=== PATIENT | female | born 1970 | race Caucasian/White ===

== ENCOUNTER → 2019-01-21 | Outpatient (CLI) | payer MEDICAID ==
--- NOTE | 2019-01-21 17:46 | US ---
EXAMINATION TYPE: US venous doppler duplex LE RT DATE OF EXAM: 01/21/2019 3:45 PM COMPARISON: NONE CLINICAL HISTORY: M79.661 PAIN RT LOWER LIMB. right calf pain after strenuous activity of room remode ling SIDE PERFORMED: Right TECHNIQUE: The lower extremity deep venous system is examined utilizing real time linear array sonog shemar with graded compression, doppler sonography and color-flow sonography. VESSELS IMAGED: Common Femoral Vein Deep Femoral Vein Greater Saphenous Vein * Femoral Vein Popliteal Vein Small Saphenous Vein * Proximal Calf Veins (* superficial vessels) Right Leg: Negative for DVT IMPRESSION: 1. Right lower extremity ultrasound negative for deep venous thrombosis.
== END ==
LOC: RADUSWWP 15:15
PROVIDERS: ATTEND Family Medicine
DX: M79.661 Pain in right lower leg (principal)

== ENCOUNTER → 2019-10-17 | Outpatient (CLI) | payer MEDICAID | END | disposition home or self-care (01) | LOC: LABWHC1 12:08 | PROVIDERS: ATTEND Family Medicine | DX: E55.9 Vitamin D deficiency, unspecified (principal) | CPT/HCPCS: 36415; 82306 ==

== ENCOUNTER 2020-05-07 07:49 | Observation (INO) | payer MEDICAID ==
[2020-05-07] MEDS ORDERED: SODIUM CHLORIDE 0.9% 500 ML 500 ML IV STA (08:12)
[2020-05-07] MEDS ORDERED: MORPHINE SULFATE 4 MG/ML SYRINGE IV STA (08:12)
--- NOTE | 2020-05-07 08:16 | ED ---
General Adult HPI - General Chief complaint: Abdominal Pain Stated complaint: Abd Pain Time Seen by Provider: 05/07/20 07:55 Source: patient, RN notes reviewed, old records reviewed Mode of arrival: ambulatory Limitations: no limitations - History of Present Illness Initial comments: 49-year-old female presenting for evaluation of abdominal pain. Pain began in the mid abdomen, has trouble to the right side after the past 12 hours or so. There is no associated fever. The patient has had some chills. No vomiting. She states she did move her bowels today but did not have a normal bowel movement. She has a previous surgical history of cholecystectomy in 2007. Pain is 7 out of 10 and radiating to the right lower quadrant. - Related Data Home Medications Medication Instructions Recorded Confirmed Ergocalciferol (Vitamin D2) 50 mcg PO DAILY 05/07/20 05/07/20 [Vitamin D2 (2000 Iu)] Sertraline [Zoloft] 50 mg PO HS 05/07/20 05/07/20 Allergies Allergy/AdvReac Type Severity Reaction Status Date / Time No Known Allergies Allergy Unverified 05/07/20 08:31 Review of Systems ROS Statement: Those systems with pertinent positive or pertinent negative responses have been documented in the HPI. ROS Other: All systems not noted in ROS Statement are negative. Past Medical History Past Medical History: GERD/Reflux History of Any Multi-Drug Resistant Organisms: None Reported Past Surgical History: Section, Cholecystectomy, Tubal Ligation Past Psychological History: No Psychological Hx Reported Smoking Status: Former smoker Past Alcohol Use History: None Reported Past Drug Use History: None Reported General Exam Limitations: no limitations General appearance: alert, in no apparent distress Head exam: Present: atraumatic, normocephalic Eye exam: Present: normal appearance, PERRL ENT exam: Present: normal exam Neck exam: Present: normal inspection. Absent: tenderness, meningismus Respiratory exam: Present: normal lung sounds bilaterally. Absent: respiratory distress, wheezes Cardiovascular Exam: Present: regular rate, normal rhythm GI/Abdominal exam: Present: soft, tenderness (Right lower quadrant tenderness to palpation.). Absent: distended, guarding, rebound Extremities exam: Present: normal inspection, normal capillary refill. Absent: pedal edema, calf tenderness Neurological exam: Present: alert, oriented X3, CN II-XII intact. Absent: motor sensory deficit Psychiatric exam: Present: normal affect, normal mood Skin exam: Present: warm, dry, intact. Absent: cyanosis, diaphoretic Course Vital Signs 05/07/20 07:51 Temperature 99.9 F H Pulse Rate 88 Respiratory 16 Rate Blood Pressure 157/91 O2 Sat by Pulse 99 Oximetry Medical Decision Making - Medical Decision Making 49-year-old female with periumbilical pain and right lower quadrant pain. She is tender on exam. She has a low-grade fever. Workup was initiated, she has mild leukocytosis, CT performed showing a acute appendicitis with no abscess or intraperitoneal free air. Case discussed with Dr. Tuttle who will admit for appendectomy likely later today. NPO, antibiotics initiated in the emergency department. - Lab Data Result diagrams: 05/07/20 08:18 05/07/20 08:18 Lab Results 05/07/20 05/07/20 05/07/20 Range/Units 08:15 08:18 08:18 WBC 13.6 H (3.8-10.6) k/uL RBC 4.68 (3.80-5.40) m/uL Hgb 14.2 (11.4-16.0) gm/dL Hct 40.8 (34.0-46.0) % MCV 87.2 (80.0-100.0) fL MCH 30.3 (25.0-35.0) pg MCHC 34.8 (31.0-37.0) g/dL RDW 12.1 (11.5-15.5) % Plt Count 252 (150-450) k/uL MPV 7.3 Neutrophils % 85 % Lymphocytes % 9 % Monocytes % 4 % Eosinophils % 1 % Basophils % 0 % Neutrophils # 11.5 H (1.3-7.7) k/uL Lymphocytes # 1.2 (1.0-4.8) k/uL Monocytes # 0.6 (0-1.0) k/uL Eosinophils # 0.1 (0-0.7) k/uL Basophils # 0.0 (0-0.2) k/uL PT 9.9 (9.0-12.0) sec INR 0.9 (<1.2) APTT 24.9 (22.0-30.0) sec Sodium (137-145) mmol/L Potassium (3.5-5.1) mmol/L Chloride (98-107) mmol/L Carbon Dioxide (22-30) mmol/L Anion Gap mmol/L BUN (7-17) mg/dL Creatinine (0.52-1.04) mg/dL Est GFR (CKD-EPI)AfAm (>60 ml/min/1.73 sqM) Est GFR (CKD-EPI)NonAf (>60 ml/min/1.73 sqM) Glucose (74-99) mg/dL Plasma Lactic Acid [place] 1.1 (0.7-2.0) mmol/L Calcium (8.4-10.2) mg/dL Total Bilirubin (0.2-1.3) mg/dL AST (14-36) U/L ALT (4-34) U/L Alkaline Phosphatase (38-126) U/L Total Protein (6.3-8.2) g/dL Albumin (3.5-5.0) g/dL Amylase (30-110) U/L Lipase (23-300) U/L Urine Color Urine Appearance (Clear) Urine pH (5.0-8.0) Ur Specific [place] (1.001-1.035) Urine Protein (Negative) Urine Glucose (UA) (Negative) Urine Ketones (Negative) Urine Blood (Negative) Urine Nitrite (Negative) Urine Bilirubin (Negative) Urine Urobilinogen (<2.0) mg/dL Ur Leukocyte Esterase (Negative) Urine RBC (0-5) /hpf Urine WBC (0-5) /hpf Ur Squamous Epith Cells (0-4) /hpf Urine Bacteria (None) /hpf Hyaline Casts (0-2) /lpf Urine Mucus (None) /hpf 05/07/20 05/07/20 Range/Units 08:18 08:18 WBC (3.8-10.6) k/uL RBC (3.80-5.40) m/uL Hgb (11.4-16.0) gm/dL Hct (34.0-46.0) % MCV (80.0-100.0) fL MCH (25.0-35.0) pg MCHC (31.0-37.0) g/dL RDW (11.5-15.5) % Plt Count (150-450) k/uL MPV Neutrophils % % Lymphocytes % % Monocytes % % Eosinophils % % Basophils % % Neutrophils # (1.3-7.7) k/uL Lymphocytes # (1.0-4.8) k/uL Monocytes # (0-1.0) k/uL Eosinophils # (0-0.7) k/uL Basophils # (0-0.2) k/uL PT (9.0-12.0) sec INR (<1.2) APTT (22.0-30.0) sec Sodium 137 (137-145) mmol/L Potassium 3.9 (3.5-5.1) mmol/L Chloride 100 (98-107) mmol/L Carbon Dioxide 26 (22-30) mmol/L Anion Gap 11 mmol/L BUN 14 (7-17) mg/dL Creatinine 0.82 (0.52-1.04) mg/dL Est GFR (CKD-EPI)AfAm >90 (>60 ml/min/1.73 sqM) Est GFR (CKD-EPI)NonAf 84 (>60 ml/min/1.73 sqM) Glucose 115 H (74-99) mg/dL Plasma Lactic Acid [place] (0.7-2.0) mmol/L Calcium 9.7 (8.4-10.2) mg/dL Total Bilirubin 0.7 (0.2-1.3) mg/dL AST 23 (14-36) U/L ALT 21 (4-34) U/L Alkaline Phosphatase 58 (38-126) U/L Total Protein 7.5 (6.3-8.2) g/dL Albumin 4.5 (3.5-5.0) g/dL Amylase 39 (30-110) U/L Lipase 62 (23-300) U/L Urine Color Light Yellow Urine Appearance Clear (Clear) Urine pH 6.5 (5.0-8.0) Ur Specific [place] 1.015 (1.001-1.035) Urine Protein Negative (Negative) Urine Glucose (UA) Negative (Negative) Urine Ketones Negative (Negative) Urine Blood Trace H (Negative) Urine Nitrite Negative (Negative) Urine Bilirubin Negative (Negative) Urine Urobilinogen <2.0 (<2.0) mg/dL Ur Leukocyte Esterase Negative (Negative) Urine RBC 3 (0-5) /hpf Urine WBC 1 (0-5) /hpf Ur Squamous Epith Cells 1 (0-4) /hpf Urine Bacteria Rare H (None) /hpf Hyaline Casts 1 (0-2) /lpf Urine Mucus Rare H (None) /hpf Disposition Clinical Impression: Acute appendicitis Disposition: ADMITTED IP TO THIS HOSP Condition: Stable Is patient prescribed a controlled substance at d/c from ED?: No Referrals: Becki Gregory MD [Primary Care Provider] - 1-2 days Decision to Admit Reason: Admit from EC Decision Date: 05/07/20 Decision Time: 09:35
[2020-05-07 08:40] LABS: Basophils % (A) 0 %; Eosinophils # (A) 0.1 k/uL (0-0.7); Eosinophils % (A) 1 %; HCT 40.8 % (34.0-46.0); HGB 14.2 gm/dL (11.4-16.0); Lymphocytes # (A) 1.2 k/uL (1.0-4.8); Lymphocytes % (A) 9 %; MCH 30.3 pg (25.0-35.0); MCHC 34.8 g/dL (31.0-37.0); MCV 87.2 fL (80.0-100.0); Mean Platelet Volume 7.3; Monocytes # (A) 0.6 k/uL (0-1.0); Monocytes % (A) 4 %; Neutrophils # (A) 11.5 k/uL (1.3-7.7); Neutrophils % (A) 85 %; Platelet Count 252 k/uL (150-450); RBC 4.68 m/uL (3.80-5.40); RDW 12.1 % (11.5-15.5); WBC 13.6 k/uL (3.8-10.6)
[2020-05-07 08:49] LABS: ALT 21 U/L (4-34); AST 23 U/L (14-36); African American GFR (CKD) >90 (>60 ml/min/1.73 sqM); Albumin 4.5 g/dL (3.5-5.0); Alkaline Phosphatase 58 U/L (38-126); Amylase 39 U/L (30-110); Anion Gap 11 mmol/L; Blood Urea Nitrogen 14 mg/dL (7-17); Calcium 9.7 mg/dL (8.4-10.2); Carbon Dioxide 26 mmol/L (22-30); Chloride 100 mmol/L (98-107); Glucose 115 mg/dL (74-99); Lipase 62 U/L (23-300); Non-African American GFR(CKD) 84 (>60 ml/min/1.73 sqM); Potassium 3.9 mmol/L (3.5-5.1); Sodium 137 mmol/L (137-145); Total Bilirubin 0.7 mg/dL (0.2-1.3); Total Protein 7.5 g/dL (6.3-8.2)
[2020-05-07 08:58] LABS: INR 0.9 (<1.2); Partial Thromboplastin Time 24.9 sec (22.0-30.0); Prothrombin Time 9.9 sec (9.0-12.0)
[2020-05-07 09:12] LABS: Appearance,Urine Clear (Clear); Bacteria,Urine Rare /hpf; Bilirubin,Urine Negative (Negative); Blood,Urine Trace (Negative); Color,Urine Light Yellow; Glucose,Urine (UA) Negative (Negative); Hyaline Casts,Urine 1 /lpf (0-2); Ketones,Urine Negative (Negative); Leukocyte Esterase,Urine Negative (Negative); Mucus,Urine Rare /hpf; Nitrite,Urine Negative (Negative); PH, Urine 6.5 (5.0-8.0); Protein,Urine Negative (Negative); RBC,Urine 3 /hpf (0-5); Specific Gravity,Urine 1.015 (1.001-1.035); Squamous Epithelial Cell,Urine 1 /hpf (0-4); Urobilinogen,Urine <2.0 mg/dL (<2.0); WBC,Urine 1 /hpf (0-5)
--- NOTE | 2020-05-07 09:17 | CT ---
EXAMINATION TYPE: CT abdomen pelvis w con DATE OF EXAM: 05/07/2020 COMPARISON: NONE HISTORY: 49-year-old female RLQ pain for 2 days TECHNIQUE: Contiguous axial scanning of the abdomen and pelvis following administration of 100 ml Iso heladio 300 IV contrast. Delayed images through the kidneys and coronal/sagittal reconstructions perform ed. CT DLP: 1832.3 mGycm Automated exposure control for dose reduction was used. FINDINGS: Heart normal size without pericardial effusion. Some motion at the visualized lung bases. No pleural effusion. Liver borderline in size at 17.8 cm. No focal lesion is seen. No biliary ductal dilatation. Portal ve nous system is patent. Cholecystectomy clips. Mild thickening of the left adrenal gland without discrete nodularity. Right adrenal gland, kidneys, pancreas appear within normal limits. Spleen is borderline in size at 13.6 cm on coronal series image 82. No dilated small bowel free fluid, or free air. No mesenteric or retroperitoneal lymphadenopathy. Mild stool burden. Mild proximal sigmoid diverticulosis without acute diverticulitis. However, there is thickening and fluid distention of the appendix with surrounding mild to moderate periappendiceal fat stranding. Bladder is urine distended. Uterus anteverted. Both ovaries are visualized. There is a 3.4 cm dominan t follicle or functional cyst in left ovary. Both tubal ligation clips are located in the left cul-de -sac and may have displaced out of position. No abnormal fluid collection in the pelvis or pelvic lym phadenopathy. Bones: Mild spurring of both hips. Mild facet arthropathy mid to lower lumbar spine. Anterior endplat e spondylosis lower thoracic spine. IMPRESSION: 1. EXAM POSITIVE FOR ACUTE APPENDICITIS WITH MILD TO MODERATE INFLAMMATION. NO PERFORATION, ABSCESS, OR FREE AIR. 2. INCIDENTAL: A 3.4 SIMILAR DOMINANT FOLLICLE OR FUNCTIONAL CYST IN LEFT OVARY. 3. ALSO, NOTE THAT BOTH TUBAL LIGATION CLIPS ARE LOCATED IN THE LEFT CUL-DE-SAC AND MAY HAVE DISPLACE D OUT OF POSITION.
[2020-05-07] MEDS ORDERED: PIPERACILLIN-TAZOBACTAM 3.375 GM in SODIUM CHLORIDE 0.9% 100 ML IVPB STA (09:19)
[2020-05-07] MEDS: SODIUM CHLORIDE 0.9% 1,000 ML IV SCH (09:28)
[2020-05-07] MEDS ORDERED: LORazepam 2 MG/ML INJ IV STA (09:30)
[2020-05-07] MEDS ORDERED: MORPHINE SULFATE 4 MG/ML SYRINGE IV PRN (09:34)
[2020-05-07] MEDS ORDERED: NALOXONE 0.4 MG/ML 1 ML VIAL IV PRN (09:34)
[2020-05-07] MEDS ORDERED: LORazepam 0.5 MG TAB PO PRN (09:34)
[2020-05-07] MEDS ORDERED: ACETAMINOPHEN TAB 325 MG TAB PO PRN (09:34)
[2020-05-07] MEDS ORDERED: ONDANSETRON 4 MG/2 ML VIAL IVP PRN (09:34)
--- NOTE | 2020-05-07 14:15 | P.GSHP ---
History of Present Illness H&P Date: 05/07/20 Chief Complaint: Acute appendicitis 49-year-old female came to the ER with complaints of right lower quadrant abdominal pain that began at 7 PM last night. Pain is been increasing in severity since that time. Some nausea but no vomiting. Normal bowel habits. No history of similar events in the past. Low-grade fever 99.9. White blood cell count elevated at 13. CAT scan shows acute appendicitis. - Review of Systems Comment: The patient denies any acute changes in vision or hearing, no dysphagia or odynophagia, no chest pain or shortness of breath, no dysuria or hematuria, no headache, no runny nose, no rectal bleeding or melena, no unexplained weight loss Past Medical History Past Medical History: GERD/Reflux History of Any Multi-Drug Resistant Organisms: None Reported Past Surgical History: Section, Cholecystectomy, Tubal Ligation Past Psychological History: No Psychological Hx Reported Smoking Status: Former smoker Past Alcohol Use History: None Reported Past Drug Use History: None Reported Medications and Allergies Home Medications Medication Instructions Recorded Confirmed Type Ergocalciferol (Vitamin D2) 50 mcg PO DAILY 05/07/20 05/07/20 History [Vitamin D2 (2000 Iu)] Sertraline [Zoloft] 50 mg PO HS 05/07/20 05/07/20 History Allergies Allergy/AdvReac Type Severity Reaction Status Date / Time No Known Allergies Allergy Unverified 05/07/20 14:10 Surgical - Exam Vital Signs Temp Pulse Resp BP Pulse Ox 99.9 F H 88 16 157/91 99 05/07/20 07:51 05/07/20 07:51 05/07/20 07:51 05/07/20 07:51 05/07/20 07:51 Physical exam: General: Well-developed, well-nourished HEENT: Normocephalic, sclerae nonicteric Abdomen: Moderate bilateral lower quadrant tenderness right greater than the left, nondistended Extremities: No edema Neuro: Alert and oriented Results - Labs 05/07/20 08:18 05/07/20 08:18 Abnormal Lab Results - Last 24 Hours (Table) 05/07/20 05/07/20 05/07/20 Range/Units 08:18 08:18 08:18 WBC 13.6 H (3.8-10.6) k/uL Neutrophils # 11.5 H (1.3-7.7) k/uL Glucose 115 H (74-99) mg/dL Urine Blood Trace H (Negative) Urine Bacteria Rare H (None) /hpf Urine Mucus Rare H (None) /hpf Diabetes panel 05/07/20 Range/Units 08:18 Sodium 137 (137-145) mmol/L Potassium 3.9 (3.5-5.1) mmol/L Chloride 100 (98-107) mmol/L Carbon Dioxide 26 (22-30) mmol/L BUN 14 (7-17) mg/dL Creatinine 0.82 (0.52-1.04) mg/dL Glucose 115 H (74-99) mg/dL Calcium 9.7 (8.4-10.2) mg/dL AST 23 (14-36) U/L ALT 21 (4-34) U/L Alkaline Phosphatase 58 (38-126) U/L Total Protein 7.5 (6.3-8.2) g/dL Albumin 4.5 (3.5-5.0) g/dL Calcium panel 05/07/20 Range/Units 08:18 Calcium 9.7 (8.4-10.2) mg/dL Albumin 4.5 (3.5-5.0) g/dL Pituitary panel 05/07/20 Range/Units 08:18 Sodium 137 (137-145) mmol/L Potassium 3.9 (3.5-5.1) mmol/L Chloride 100 (98-107) mmol/L Carbon Dioxide 26 (22-30) mmol/L BUN 14 (7-17) mg/dL Creatinine 0.82 (0.52-1.04) mg/dL Glucose 115 H (74-99) mg/dL Calcium 9.7 (8.4-10.2) mg/dL Adrenal panel 05/07/20 Range/Units 08:18 Sodium 137 (137-145) mmol/L Potassium 3.9 (3.5-5.1) mmol/L Chloride 100 (98-107) mmol/L Carbon Dioxide 26 (22-30) mmol/L BUN 14 (7-17) mg/dL Creatinine 0.82 (0.52-1.04) mg/dL Glucose 115 H (74-99) mg/dL Calcium 9.7 (8.4-10.2) mg/dL Total Bilirubin 0.7 (0.2-1.3) mg/dL AST 23 (14-36) U/L ALT 21 (4-34) U/L Alkaline Phosphatase 58 (38-126) U/L Total Protein 7.5 (6.3-8.2) g/dL Albumin 4.5 (3.5-5.0) g/dL Assessment and Plan (1) Acute appendicitis Narrative/Plan: Will proceed with laparoscopic, possible open appendectomy at this time. Risks of bleeding, infection, hernia, abscess, bladder bowel and ureteral injury, co nversion to an open procedure reviewed. She understands and wishes to proceed. Current Visit: Yes Status: Acute Code(s): K35.80 - UNSPECIFIED ACUTE APPENDICITIS SNOMED Code(s): 28191232
[2020-05-07] MEDS ORDERED: DEXAMETHASONE SOD PHOSPHATE 4 MG/ML 1 ML VIAL IV ONE (14:24)
[2020-05-07] MEDS ORDERED: ONDANSETRON 4 MG/2 ML VIAL IVP ONE (14:24)
[2020-05-07] MEDS ORDERED: GLYCOPYRROLATE 0.2 MG/ML 2 ML VIAL ONE (14:25)
[2020-05-07] MEDS ORDERED: ROCURONIUM 10 MG/ML (5 ML VIAL) IV ONE (14:25)
[2020-05-07] MEDS ORDERED: NEOSTIGMINE 1 MG/ML 10 ML VIAL ONE (14:25)
[2020-05-07] MEDS ORDERED: PROPOFOL 10 MG/ML 20 ML VIAL IV ONE (14:25)
[2020-05-07] MEDS ORDERED: KETOROLAC 15 MG/ML 1 ML VIAL ONE (14:25)
[2020-05-07] MEDS ORDERED: LIDOCAINE 1% INJ 10MG/ML (20 ML MDV) ONE (14:25)
[2020-05-07] MEDS ORDERED: fentaNYL (PF) 50 MCG/ML 2 ML AMP ONE (14:25)
[2020-05-07] MEDS ORDERED: MIDAZOLAM 2 MG/2 ML VIAL ONE (14:25)
[2020-05-07] MEDS ORDERED: SUCCINYLCHOLINE CHLORIDE 100 MG/5 ML SYR IV ONE (14:25)
[2020-05-07] MEDS ORDERED: IV FLUID CONTINUATION 1,000 ML IV ONE (14:25)
[2020-05-07] MEDS ORDERED: BUPIVACAIN-EPI 0.5%-1:200,000 30 ML VIAL SQ ONE ×2 (14:46→14:52)
[2020-05-07] MEDS ORDERED: SODIUM CHLORIDE 0.9% 50 ML with ceFAZolin 2,000 MG IV ONE ×2 (14:52)
[2020-05-07] MEDS ORDERED: LACTATED RINGERS 1,000 ML IV ONE (15:19)
[2020-05-07] MEDS ORDERED: HYDROmorphone 1 MG/ML 1 ML SYRINGE IVP PRN (15:19)
--- NOTE | 2020-05-07 15:24 | P.OP ---
Date of Procedure: 05/07/20 Procedure(s) Performed: PREOPERATIVE DIAGNOSIS: Acute appendicitis POSTOPERATIVE DIAGNOSIS: Same PROCEDURE: Laparoscopic appendectomy SURGEON: Parag EBL: 5 mL ANESTHESIA: General COMPLICATIONS: None OPERATIVE PROCEDURE: The patient was brought and placed on the operating table in the supine position. The patient was placed under general anesthesia. The abdomen was prepped and draped in the usual sterile fashion. A small vertical infraumbilical incision was made. The fascia was retracted anteriorly with Acs forceps. The Veress needle was advanced into the peritoneal cavity. The saline drop test was normal. Insufflation took place to 15 mmHg. A 5 mm trocar was then placed. An additional 5 mm suprapubic trocar was placed under direct visualization as well as a 12 mm left lower quadrant trocar under direct visualization. The appendix was inspected. It was acutely inflamed. The mesoappendix was dissected. The base of the appendix was divided using a linear 45 mm intestinal stapler. The mesentery itself was divided using the LigaSure device. The area was then irrigated. No further purulence or bleeding was seen. The appendix was brought out of the peritoneal cavity through the left lower quadrant trocar site with an Endo Catch bag. The fascia at the 12 mm site was closed using a Dionicio-Tequila 0 Vicryl stitch. The skin at all 3 sites was closed using 4-0 Monocryl sutures. Skin glue was then applied. DISPOSITION: Stable to recovery room
[2020-05-07] MEDS ORDERED: HYDROmorphone 1 MG/ML 1 ML SYRINGE IVP ONE ×4 (15:37→16:00)
[2020-05-07] MEDS ORDERED: SODIUM CHLORIDE 0.9% 1,000 ML IV ONE (15:47)
[2020-05-07] MEDS ORDERED: PIPERACILLIN-TAZOBACTAM 3.375 GM in SODIUM CHLORIDE 0.9% 100 ML IVPB SCH (16:00)
[2020-05-07] MEDS ORDERED: FAMOTIDINE 20 MG/2 ML VIAL IVP ONE (16:09)
[2020-05-07] MEDS: PIPERACILLIN-TAZOBACTAM 3.375 GM in SODIUM CHLORIDE 0.9% 100 ML IVPB SCH ×2 (16:43→23:35)
[2020-05-07] MEDS: HEPARIN SODIUM,PORCINE 5,000 UNIT/ML 1 ML VIAL SQ SCH ×2 (16:43→23:33)
[2020-05-07 17:15] VITALS: TEMP 98.5
[2020-05-07] MEDS: HYDROcodone/APAP 5-325MG 1 EACH TAB PO PRN ×2 (19:40→23:41)
[2020-05-07] MEDS: DOCUSATE 100 MG CAP PO SCH (20:39)
[2020-05-07] MEDS ORDERED: SERTRALINE 50 MG TAB PO SCH (21:00)
[2020-05-08] MEDS: SODIUM CHLORIDE 0.9% 1,000 ML IV SCH (01:46)
[2020-05-08] MEDS: HYDROcodone/APAP 5-325MG 1 EACH TAB PO PRN ×3 (03:52→13:36)
[2020-05-08] MEDS: DOCUSATE 100 MG CAP PO SCH (08:00)
[2020-05-08] MEDS: HEPARIN SODIUM,PORCINE 5,000 UNIT/ML 1 ML VIAL SQ SCH (08:00)
[2020-05-08] MEDS: PIPERACILLIN-TAZOBACTAM 3.375 GM in SODIUM CHLORIDE 0.9% 100 ML IVPB SCH (08:02)
[2020-05-08 08:35] VITALS: BP 165/73; PULSE 56; RESP 18
[2020-05-08] MEDS ORDERED: PANTOPRAZOLE 40 MG/10 ML VIAL IV SCH (09:00)
[2020-05-08 09:13] LABS: Basophils % (A) 0 %; Eosinophils # (A) 0.1 k/uL (0-0.7); Eosinophils % (A) 1 %; HCT 38.6 % (34.0-46.0); HGB 12.7 gm/dL (11.4-16.0); Lymphocytes # (A) 1.3 k/uL (1.0-4.8); Lymphocytes % (A) 15 %; MCH 29.7 pg (25.0-35.0); MCV 89.9 fL (80.0-100.0); Mean Platelet Volume 7.3; Monocytes # (A) 0.3 k/uL (0-1.0); Monocytes % (A) 4 %; Neutrophils # (A) 6.9 k/uL (1.3-7.7); Neutrophils % (A) 79 %; Platelet Count 236 k/uL (150-450); RBC 4.29 m/uL (3.80-5.40); RDW 12.7 % (11.5-15.5); WBC 8.8 k/uL (3.8-10.6)
--- NOTE | 2020-05-08 10:52 | P.DS ---
<Misty Garza - Last Filed: 05/08/20 10:49> Providers Expected date of discharge: 05/08/20 Hospital Course: Discharge diagnosis 1. Acute appendicitis status post laparoscopic appendectomy Hospital course This is a 49-year-old female came to the ER with complaints of right lower quadrant abdominal pain. Pain is been increasing in severity. Some nausea but no vomiting. Normal bowel habits. No history of similar events in the past. Low-grade fever 99.9. White blood cell count elevated at 13. CAT scan shows acute appendicitis. Patient is status post laparoscopic appendectomy. Patient reports that her pain is controlled. She is tolerating diet. She has been up and ambulating. She is afebrile. Her white count has normalized. She is stable for discharge. Please refer to chart for any further details. Physician Grooming Assistant note has been reviewed by physician. Signing provider agrees with the documented findings, assessment, and plan of care. Patient Condition at Discharge: Stable Plan - Discharge Summary Discharge Rx Participant: Yes New Discharge Prescriptions: New oxyCODONE HCL [OxyIR] 5 mg PO Q6H PRN 3 Days #6 tab PRN Reason: Breakthrough Pain Docusate [Colace] 100 mg PO BID #30 capsule Continue Sertraline [Zoloft] 50 mg PO HS Ergocalciferol (Vitamin D2) [Vitamin D2 (2000 Iu)] 50 mcg PO DAILY Discharge Medication List Ergocalciferol (Vitamin D2) [Vitamin D2 (2000 Iu)] 50 mcg PO DAILY 05/07/20 [History] Sertraline [Zoloft] 50 mg PO HS 05/07/20 [History] oxyCODONE HCL [OxyIR] 5 mg PO Q6H PRN 3 Days #6 tab 05/07/20 [Rx] Docusate [Colace] 100 mg PO BID #30 capsule 05/08/20 [Rx] Follow up Appointment(s)/Referral(s): Luke Tuttle MD [Medical Doctor] - 1 Week Becki Gregory MD [Primary Care Provider] - 1-2 days Patient Instructions/Handouts: Laparoscopic Appendectomy (DC) Activity/Diet/Wound Care/Special Instructions: Continue diet as tolerated. fluids are encouraged. Continue pain medications as tolerated. A Rx has been sent for you. Follow up with physicians as directed. You may shower, no tub baths, swimming pools or hot tubs until cleared by surgeon. No lifting pushing pulling over 5 [address] while on narcotic pain medications. Call physician with any questions comments concerns worsening returning symptoms, incisions leaking or oozing, not tolerating diet or fluids, fever 101.1 or higher, pain that is not tolerated by medications prescribed to you. Able to return to work on 05/11/2020. Discharge Disposition: HOME SELF-CARE <Luke Tuttle - Last Filed: 05/08/20 14:57> Providers Date of admission: 05/07/20 09:34 Attending physician: Luke Tuttle Primary care physician: Becki Gregory - Discharge Diagnosis(es) (1) Acute appendicitis Current Visit: Yes Status: Acute Hospital Course: As above. Patient doing well today. Stable for discharge. Follow-up one week.
== END 2020-05-08 15:29 | disposition home or self-care (01) ==
LOC: EC 07:49 → 6NMEDSUR 09:34 → 6PED 14:18
PROVIDERS: ADMIT Surgery; ATTEND Surgery
DX: K35.80 Unspecified acute appendicitis (principal); K57.32 Diverticulitis of large intestine without perforation or abscess without bleeding; N83.02 Follicular cyst of left ovary; T83.428A Displacement of other prosthetic devices, implants and grafts of genital tract, initial encounter; Z98.51 Tubal ligation status; Z90.49 Acquired absence of other specified parts of digestive tract; Z20.822 Contact with and (suspected) exposure to COVID-19; Z87.891 Personal history of nicotine dependence
CPT/HCPCS: 44970; 96361; 96374; 99285; 36415; 81025; 86900; 86901; 80053; 82150; 83605; 83690; 85025 ×2; 85610; 85730; 86850; 81001; 87635; 74177; G0378 ×2; J2543 ×2; J2250; J2060; J1644 ×2; J1100; J2710; J2405; J0690; J2001; J3010; J1170; J1885; J0330; J2704; C9113; Q9967; 88304

== ENCOUNTER 2022-03-11 07:34 | Emergency (ER) | payer MEDICAID ==
[2022-03-11 07:40] VITALS: TEMP 98.2
--- NOTE | 2022-03-11 08:40 | US ---
EXAMINATION TYPE: US venous doppler duplex LE RT DATE OF EXAM: 03/11/2022 8:32 AM COMPARISON: Right lower extremity venous ultrasound 03/23/2018. CLINICAL HISTORY: Pain and swelling. Patient states redness and swelling, feels like a bruise. No in jury. Not on blood thinners. SIDE PERFORMED: Right TECHNIQUE: The lower extremity deep venous system is examined utilizing real time linear array sonog shemar with graded compression, doppler sonography and color-flow sonography. VESSELS IMAGED: Common Femoral Vein Deep Femoral Vein Greater Saphenous Vein * Femoral Vein Popliteal Vein Small Saphenous Vein * Proximal Calf Veins (* superficial vessels) Grayscale, color doppler, spectral doppler imaging performed of the deep veins of the lower extremiti es. There is normal flow, compressibility, vascular waveforms. Superficial venous thrombosis involv ing the right medial mid calf vein with noncompressibility demonstrated. Right Leg: Negative for DVT. Area of concern scanned at medial mid calf, SVT seen. IMPRESSION: 1. No deep venous thrombosis of the right lower extremity. 2. Superficial venous thrombosis of the right medial mid calf vein.
--- NOTE | 2022-03-11 08:53 | ED ---
Extremity Problem HPI - General Chief complaint: Extremity Problem,Nontraumatic Stated complaint: possible DVT right leg Time Seen by Provider: 03/11/22 07:41 Source: patient, RN notes reviewed Mode of arrival: ambulatory Limitations: no limitations - History of Present Illness Initial comments: This is a 51-year-old female who presents to the emergency department for right leg pain and swelling. States that this developed during the day yesterday and when she took off her pants for bed, she felt like the right leg was much more swollen compared to the left and she started to develop an increase in heat and redness. Her largest concern is a blood clot, because her brother has a history of pulmonary embolisms. She has no personal history of blood clots and is not taking any blood thinners. Denies any known injuries. Also denies any chest pain or shortness of breath. Denies any fevers, chills, sore throat, cough, dyspnea, chest pain, palpitations, abdominal pain, nausea, vomiting, diarrhea, back pain, or headaches. MD Complaint: extremity pain, extremity swelling Onset/Timin -: days(s) Location: right, lower extremity History of Same: No - Related Data Home Medications Medication Instructions Recorded Confirmed Ergocalciferol (Vitamin D2) 50 mcg PO DAILY 05/07/20 05/07/20 [Vitamin D2 (2000 Iu)] Sertraline [Zoloft] 50 mg PO HS 05/07/20 05/07/20 Previous Rx's Medication Instructions Recorded oxyCODONE HCL [OxyIR] 5 mg PO Q6H PRN 3 Days #6 tab 05/07/20 Docusate [Colace] 100 mg PO BID #30 capsule 05/08/20 Allergies Allergy/AdvReac Type Severity Reaction Status Date / Time No Known Allergies Allergy Unverified 03/11/22 07:40 Review of Systems ROS Statement: Those systems with pertinent positive or pertinent negative responses have been documented in the HPI. ROS Other: All systems not noted in ROS Statement are negative. Past Medical History Past Medical History: GERD/Reflux History of Any Multi-Drug Resistant Organisms: None Reported Past Surgical History: Appendectomy, Section, Cholecystectomy, Tubal Ligation Past Psychological History: No Psychological Hx Reported Smoking Status: Former smoker Past Alcohol Use History: Occasional Past Drug Use History: None Reported General Exam Limitations: no limitations General appearance: alert, in no apparent distress Head exam: Present: atraumatic, normocephalic, normal inspection Respiratory exam: Present: normal lung sounds bilaterally. Absent: respiratory distress, wheezes, rales, rhonchi, stridor Cardiovascular Exam: Present: regular rate, normal rhythm, normal heart sounds. Absent: systolic murmur, diastolic murmur, rubs, gallop, clicks Extremities exam: Present: other (Very mild diffuse swelling of the right lower extremity. There may be a slight increase in heat, however there is no notable erythema. 2+ dorsalis pedis and tibialis posterior pulses bilaterally, capillary refill less than 1 second.) Neurological exam: Present: alert, oriented X3, CN II-XII intact Psychiatric exam: Present: normal affect, normal mood Course Vital Signs 03/11/22 03/11/22 07:37 09:31 Temperature 98.2 F Pulse Rate 80 78 Respiratory 20 18 Rate Blood Pressure 141/87 122/74 O2 Sat by Pulse 98 99 Oximetry Medical Decision Making - Medical Decision Making This is a 51-year-old female who presents to the emergency department for right leg pain and swelling. Was pt. sent in by a medical professional or institution? @ -No Did you speak to anyone other than the patient for history? @ -No Did you review nursing and triage notes? @ -Agree, accurate with regards to the patient's symptoms. Were old charts reviewed? @ -No Differential Diagnosis? @ -DVT, Gibson's cyst, cellulitis, venous stasis changes, arterial occlusion, osteoarthritis, rheumatoid arthritis, superficial thrombophlebitis, this is not meant to be an all-inclusive list. X-rays interpreted by me (1pt min.)? @ -X-ray of the right knee obtained, there is no evidence of any acute fractures, dislocations, or swelling. What testing was considered but not performed? (CT, X-rays, U/S, labs)? Why? @ -None What meds were considered but not given? Why? @ -None Did you discuss the management of the patient with other professionals? @ -No Did you reconcile home meds? @ -No Was smoking cessation discussed for >3mins.? @ -No Was critical care preformed (if so, how long)? @ -No Were there social determinants of health that impacted care today? How? (Homele ssness, low income, unemployed, alcoholism, drug addiction, transportation, low edu. Level, literacy, decrease access to med. care, penitentiary, rehab)? @ -No Was there de-escalation of care discussed even if they declined? (Discuss DNR or withdrawal of care, Hospice)? @ -No What co-morbidities impacted this encounter? (DM, HTN, Smoking, COPD, CAD, Cancer, CVA, Hep., AIDS, mental health diagnosis, sleep apnea, morbid obesity)? @ -Morbid obesity Was patient admitted / discharged? @ -Discharged. Duplex ultrasound of the right lower extremity obtained. This identified no evidence of a DVT but makes note of a superficial venous thrombosis. X-ray of the right lower extremity identifies no acute findings as listed above. This superficial venous thrombosis is not within 2 cm of deep venous system and no blood thinners are indicated. She is instructed to keep the leg elevated, wear compression stockings, and take ibuprofen for management of symptoms. She will also need to contact her primary care provider for a follow-up ultrasound in 7-10 days. Drug Therapy requiring intensive monitoring for toxicity (Heparin, Nitro, Insulin, Cardizem)? @ -None Were any procedures done? @ -None Diagnosis/symptom? @ -Superficial venous thrombosis Acute, or Chronic, or Acute on Chronic? @ -Acute Uncomplicated (without systemic symptoms) or Complicated (systemic symptoms)? @ -Uncomplicated Side effects of treatment? @ -None Exacerbation, Progression, or Severe Exacerbation] @ -Not applicable Poses a threat to life or bodily function? @ -No Return precautions reviewed in depth, the patient is instructed to return to the emergency department with any new, worsening, or concerning symptoms. Patient verbalized understanding. This case was discussed in detail with the attending ED physician, Dr. Mcdaniels. Presentation, findings, and treatment plan discussed in detail as well. - Radiology Data Radiology results: report reviewed, image reviewed Disposition Clinical Impression: Superficial thrombophlebitis Disposition: HOME SELF-CARE Instructions (If sedation given, give patient instructions): Superficial Thrombophlebitis (ED) Additional Instructions: Return to the emergency department with any new, worsening, or concerning symptoms. Contact your primary care provider regarding the superficial thrombophlebitis, as you will need a repeat ultrasound in 7-10 days. Keep your leg elevated as much as possible, wear compression stockings, and take anti- inflammatories such as ibuprofen. Is patient prescribed a controlled substance at d/c from ED?: No Referrals: Becki Gregory MD [Primary Care Provider] - 1-2 days
--- NOTE | 2022-03-11 09:01 | XR ---
EXAMINATION TYPE: XR tibia fibula RT DATE OF EXAM: 03/11/2022 COMPARISON: NONE HISTORY: 51-year-old female pain and swelling, redness TECHNIQUE: 2 views FINDINGS: Mild spurring of the knee. Ankle articulation appears grossly intact. No periostitis or ost eolysis. No acute fracture seen. IMPRESSION: No acute osseous abnormality seen.
[2022-03-11 09:32] VITALS: BP 122/74; PULSE 78; RESP 18
== END 2022-03-11 09:32 | disposition home or self-care (01) ==
LOC: EC 07:34
DX: I80.01 Phlebitis and thrombophlebitis of superficial vessels of right lower extremity (principal); Z87.891 Personal history of nicotine dependence
CPT/HCPCS: 99283

== ENCOUNTER → 2022-03-17 | Outpatient (CLI) | payer MEDICAID ==
--- NOTE | 2022-03-18 06:51 | US ---
EXAMINATION TYPE: US venous doppler duplex LE RT DATE OF EXAM: 03/17/2022 4:48 PM COMPARISON: Right lower extremity venous ultrasound 03/11/2022 CLINICAL HISTORY: I82.811 SUPERFICIAL VENOUS THROMBOSIS LE RT. SIDE PERFORMED: Right TECHNIQUE: The lower extremity deep venous system is examined utilizing real time linear array sonog shemar with graded compression, doppler sonography and color-flow sonography. VESSELS IMAGED: Common Femoral Vein Deep Femoral Vein Greater Saphenous Vein * Femoral Vein Popliteal Vein Small Saphenous Vein * Proximal Calf Veins (* superficial vessels) Grayscale, color doppler, spectral doppler imaging performed of the deep veins of the lower extremiti es. Redemonstration superficial venous thrombosis involving the distal thigh to proximal calf. There is normal flow, compressibility, vascular waveforms within the remaining venous vasculature. Right Leg: Negative for DVT Superficial thrombus from distal thigh to proximal calf at a length of > 18cm. IMPRESSION: 1. No deep venous fibrosis of the right lower extremity. 2. Redemonstration of superficial venous thrombosis involving the distal thigh to proximal calf.
== END | disposition home or self-care (01) ==
LOC: RADUSWWP 16:14
PROVIDERS: ATTEND Family Medicine
DX: I82.811 Embolism and thrombosis of superficial veins of right lower extremity (principal)

== ENCOUNTER 2022-03-18 12:51 | Emergency (ER) | payer MEDICAID ==
[2022-03-18 13:01] VITALS: TEMP 98.1
[2022-03-18 14:02] LABS: Anisocytosis Slight; HGB 13.5 gm/dL (11.4-16.0); MCH 30.7 pg (25.0-35.0); MCHC 35.4 g/dL (31.0-37.0); MCV 86.7 fL (80.0-100.0); Mean Platelet Volume 7.7; Platelet Count 279 k/uL (150-450); RBC 4.38 m/uL (3.80-5.40); RDW 16.3 % (11.5-15.5)
[2022-03-18 14:06] LABS: ALT 44 U/L (4-34); AST 48 U/L (14-36); African American GFR (CKD) >90 (>60 ml/min/1.73 sqM); Albumin 4.6 g/dL (3.5-5.0); Alkaline Phosphatase 65 U/L (38-126); Anion Gap 8 mmol/L; Blood Urea Nitrogen 16 mg/dL (7-17); Carbon Dioxide 25 mmol/L (22-30); Chloride 103 mmol/L (98-107); Glucose 110 mg/dL (74-99); Lipase 71 U/L (23-300); Magnesium 1.6 mg/dL (1.6-2.3); Non-African American GFR(CKD) 86 (>60 ml/min/1.73 sqM); Sodium 136 mmol/L (137-145); Total Bilirubin 0.8 mg/dL (0.2-1.3); Total Protein 7.6 g/dL (6.3-8.2); WBC 109.8 k/uL (3.8-10.6)
[2022-03-18] MEDS ORDERED: LORazepam 2 MG/ML INJ IV STA (14:22)
--- NOTE | 2022-03-18 14:32 | ED ---
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 The patient was found to have a white blood cell count of 109 in the office and was sent in for evaluation. The patient herself denied any acute pain or distress or any abdominal pain. The patient stated that she was feeling fine however had been diagnosed with a superficial DVT several weeks ago in the ER but had not been treated for it. The patient was resting in bed without any acute distress and denied any nausea, vomiting, fevers and chills. - Related Data Home Medications Medication Instructions Recorded Confirmed Sertraline [Zoloft] 50 mg PO W/SUPPER 05/07/20 03/18/22 Aspirin EC [Ecotrin Low Dose] 243 mg PO W/SUPPER 03/18/22 03/18/22 Cholecalciferol [Vitamin D3 (25 50 mcg PO DAILY 03/18/22 03/18/22 Mcg = 1000 Iu)] Previous Rx's Medication Instructions Recorded ALPRAZolam [Xanax] 0.25 mg PO BID PRN 3 Days #6 tab 03/18/22 Allergies Allergy/AdvReac Type Severity Reaction Status Date / Time No Known Allergies Allergy Verified 03/18/22 13:39 Review of Systems ROS Statement: Those systems with pertinent positive or pertinent negative responses have been documented in the HPI. ROS Other: All systems not noted in ROS Statement are negative. Past Medical History Past Medical History: GERD/Reflux History of Any Multi-Drug Resistant Organisms: None Reported Past Surgical History: Appendectomy, Section, Cholecystectomy, Tubal Ligation Past Psychological History: No Psychological Hx Reported Smoking Status: Former smoker Past Alcohol Use History: Occasional Past Drug Use History: None Reported General Exam Limitations: no limitations General appearance: alert, in no apparent distress Head exam: Present: atraumatic, normocephalic, normal inspection Eye exam: Present: normal appearance, PERRL Pupils: Present: normal accommodation ENT exam: Present: normal exam, normal oropharynx, mucous membranes moist Neck exam: Present: normal inspection, full ROM Respiratory exam: Present: normal lung sounds bilaterally Cardiovascular Exam: Present: regular rate, normal rhythm, normal heart sounds GI/Abdominal exam: Present: soft, normal bowel sounds Extremities exam: Present: normal inspection, full ROM Back exam: Present: normal inspection, full ROM Neurological exam: Present: alert, oriented X3, CN II-XII intact Psychiatric exam: Present: normal affect, normal mood Skin exam: Present: warm, dry Course Vital Signs 03/18/22 03/18/22 12:58 16:19 Temperature 98.1 F Pulse Rate 94 80 Respiratory 20 18 Rate Blood Pressure 167/103 158/100 O2 Sat by Pulse 99 96 Oximetry Medical Decision Making - Medical Decision Making Was pt. sent in by a medical professional or institution (SARAH Reynolds, ORDER PROCESSING CLERK, urgent care, hospital, or custodial...) When possible be specific @ -Yes, PCP office Did you speak to anyone other than the patient for history (EMS, parent, family, police, friend...)? What history was obtained from this source @ -No Did you review nursing and triage notes (agree or disagree)? Why? @ -I reviewed and agree with nursing and triage notes Were old charts reviewed (outside hosp., previous admission, EMS record, old EKG, old radiological studies, urgent care reports/EKG's, custodial records)? Report findings @ -No old charts were reviewed Differential Diagnosis (chest pain, altered mental status, abdominal pain women, abdominal pain men, vaginal bleeding, weakness, fever, dyspnea, syncope, headache, dizziness, GI bleed, back pain, seizure, CVA, palpatations, mental health)? @ -Acute leukemia, sepsis, unspecified carcinoma EKG interpreted by me (3pts min.). @ -None X-rays interpreted by me (1pt min.). @ -None done CT interpreted by me (1pt min.). @ -CT chest, abdomen and pelvis with contrast was obtained to rule out any sort of malignancy. CT was obtained and was reviewed by myself and showed no acute findings or any signs of malignancy. There was a right cystic structure on the right ovary however no signs of acute tumors. U/S interpreted by me (1pt. min.). @ -None done What testing was considered but not performed or refused? (CT, X-rays, U/S, labs)? Why? @ -None What meds were considered but not given or refused? Why? @ -None Did you discuss the management of the patient with other professionals (professionals i.e. , PA, ORDER PROCESSING CLERK, lab, RT, psych nurse, medical social worker, advice clerk, teacher, corporate compliance officer, manager rfid)? Give summary @ -Yes, patient's primary care physician was contacted multiple times regarding the patient. The on-call oncologist, Dr. Monreal, was also contacted regarding the patient and planned for potential care. Was smoking cessation discussed for >3mins.? @ -No Was critical care preformed (if so, how long)? @ -No Were there social determinants of health that impacted care today? How? (Homelessness, low income, unemployed, alcoholism, drug addiction, transportation, low edu. Level, literacy, decrease access to med. care, long term, rehab)? @ -No Was there de-escalation of care discussed even if they declined (Discuss DNR or withdrawal of care, Hospice)? DNR status @ -No What co-morbidities impacted this encounter? (DM, HTN, Smoking, COPD, CAD, Cancer, CVA, ARF, Chemo, Hep., AIDS, mental health diagnosis, sleep apnea, morbid obesity)? @ -Previous appendiceal carcinoma status post resection Was patient admitted / discharged? Hospital course, mention meds given and route, prescriptions, significant lab abnormalities, going to OR and other pertinent info. @ -The patient was seen and evaluated in the emergency room. On physical exam, the patient was resting in bed without any acute pain or complaints. Vital signs were stable. Laboratory workup was repeated since the patient's white blood cell count was significantly elevated the office. White blood cell count was once again elevated at 109. due to the sinus, CT chest, abdomen and pelvis was obtained to rule out any malignancy. Computed tomography scan was negative for any signs malignancy. The patient's primary care physician was contacted and was updated on this. She did request the patient to be admitted and did be placed in a consult by the oncologist. Prior to the patient being admitted, she did ask if any procedures would be done this weekend as she did have her lynn ghter's birthday tomorrow morning. 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 The oncologist on-call, Dr. Monreal was contacted. The patient as well as plans and what the plan will be for the . He did state that they would likely be no bone marrow biopsy performed this and instead would be Monday. He did state that the patient could decompensate at any time however understood that the patient might be discharged and would be present on Monday. The patient was told of this and after an extensive shared decision making conversation was had with the patient, and the patient did request to be discharged. The patient was stable without any complaints and I did agree to discharge and the patient with the understanding the patient would present back to the emergency department on Monday evening her to be admitted for workup. The oncologist did confirm that the patient had a bone marrow biopsy scheduled tentatively for Monday. The patient's primary care physician was also contacted regarding this decision. The patient understood to report back to the emergency department if she had any worsening or acute new complaints including shortness of breath, chest pain, dizziness or lightheadedness. 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 I did agree to this and she did seem reasonable an understanding. The patient was discharged home in stable condition with her . Undiagnosed new problem with uncertain prognosis? @ -No Drug Therapy requiring intensive monitoring for toxicity (Heparin, Nitro, Insu gustavo, Cardizem)? @ -No Were any procedures done? @ -No Diagnosis/symptom? @ -Acute leukocytosis possibly new onset AML Acute, or Chronic, or Acute on Chronic? @ -Acute Uncomplicated (without systemic symptoms) or Complicated (systemic symptoms)? @ -Uncomplicated Side effects of treatment? @ -No Exacerbation, Progression, or Severe Exacerbation? @ -No Poses a threat to life or bodily function? How? (Chest pain, [place], [place], pneumonia, PE, COPD, DKA, ARF, appy, cholecystitis, CVA, Diverticulitis, Homicidal, Suicidal, threat to staff... and all critical care pts) @ -No - Lab Data Result diagrams: 03/18/22 13:37 03/18/22 13:37 Lab Results 03/18/22 03/18/22 Range/Units 13:37 13:37 WBC 109.8 H* (3.8-10.6) k/uL RBC 4.38 (3.80-5.40) m/uL Hgb 13.5 (11.4-16.0) gm/dL Hct 38.0 (34.0-46.0) % MCV 86.7 (80.0-100.0) fL MCH 30.7 (25.0-35.0) pg MCHC 35.4 (31.0-37.0) g/dL RDW 16.3 H (11.5-15.5) % Plt Count 279 (150-450) k/uL MPV 7.7 Neutrophils % (Manual) 9 % Band Neuts % (Manual) 1 % Lymphocytes % (Manual) 37 % Monocytes % (Manual) 3 % Eosinophils % (Manual) 1 % Blast Cells % 50 H* % Neutrophils # (Manual) 10.90 H (1.3-7.7) k/uL Lymphocytes # (Manual) 40.63 H (1.0-4.8) k/uL Monocytes # (Manual) 3.29 H (0-1.0) k/uL Eosinophils # (Manual) 1.10 H (0-0.7) k/uL Blast Cells # (Man) 54.90 H (0) k/uL Nucleated RBCs 0 (0-0) /100 WBC Manual Slide Review Performed Pathologist Review See comment A Anisocytosis Slight Sodium 136 L (137-145) mmol/L Potassium 5.0 (3.5-5.1) mmol/L Chloride 103 (98-107) mmol/L Carbon Dioxide 25 (22-30) mmol/L Anion Gap 8 mmol/L BUN 16 (7-17) mg/dL Creatinine 0.80 (0.52-1.04) mg/dL Est GFR (CKD-EPI)AfAm >90 (>60 ml/min/1.73 sqM) Est GFR (CKD-EPI)NonAf 86 (>60 ml/min/1.73 sqM) Glucose 110 H (74-99) mg/dL Calcium 9.0 (8.4-10.2) mg/dL Magnesium 1.6 (1.6-2.3) mg/dL Total Bilirubin 0.8 (0.2-1.3) mg/dL AST 48 H (14-36) U/L ALT 44 H (4-34) U/L Alkaline Phosphatase 65 (38-126) U/L Total Protein 7.6 (6.3-8.2) g/dL Albumin 4.6 (3.5-5.0) g/dL Lipase 71 (23-300) U/L Critical Care Time Critical Care Time: Yes Total Critical Care Time: 32 Disposition Clinical Impression: Leukocytosis Disposition: HOME SELF-CARE Condition: Stable Prescriptions: ALPRAZolam [Xanax] 0.25 mg PO BID PRN 3 Days #6 tab PRN Reason: Anxiety Is patient prescribed a controlled substance at d/c from ED?: No Referrals: Becki Gregory MD [Primary Care Provider] - 1-2 days Time of Disposition: 17:00
--- NOTE | 2022-03-18 15:15 | CT ---
EXAMINATION: CT CHEST, ABDOMEN AND PELVIS WITH IV CONTRAST DATE OF EXAMINATION: 03/18/2022. COMPARISON: 07/07/2021.. INDICATION: Elevated white blood cell count with history of appendiceal cancer. PROCEDURE: Axial CT of the chest, abdomen and pelvis was performed following the intravenous adminis tration of 100 ml Isovue 300. Coronal and sagittal reformats were performed. CT dose lowering techni ques were used, to include: automated exposure control, adjustment for patient size, and/or use of it erative reconstruction. FINDINGS: CHEST: Mediastinum and Robyn: There is no axillary, mediastinal or hilar lymphadenopathy. Pleural and Pericardial spaces: There are no pleural or pericardial effusions. Cardiovascular: The thoracic aorta is normal in size without evidence of aneurysm or dissection. Pulmonary Artery: There are no central pulmonary arterial filling defects. Lung Parenchyma and Airways: The lungs are clear. ABDOMEN: Liver and Biliary system: Normal. Adrenal glands: Normal. Kidneys and ureters: Normal. Spleen: Normal. Pancreas: Normal. Gallbladder: Surgically absent. Lymph nodes, Peritoneum and mesentery: There is no mesenteric or retroperitoneal lymphadenopathy. Gastrointestinal tract: There are no dilated loops of bowel or free intraperitoneal air. . The appe ndix is absent no local recurrent abnormalities are seen. Aorta/IVC: Aorta normal. No aortic aneurysm or dissection. IVC normal. Abdominal wall: There is a fat-containing left periumbilical ventral hernia which is unchanged and m oderate in size.. PELVIS: Fluid: There is no free fluid in the pelvis. Lymph Nodes: There is no pelvic or inguinal lymphadenopathy.. Urinary bladder: Normal. BONES: There are no osseous destructive lesions.. ADDITIONAL SIGNIFICANT FINDINGS: There is a right ovarian cystic structure measuring 5.3 x 3.9 cm i n diameter. Follow-up ultrasound is recommended. IMPRESSION: 1. No acute process seen within the chest, abdomen or pelvis. 2. Right ovarian cystic lesion. Ultrasound recommended for further evaluation. 3. No definitive evidence of metastatic disease within the chest, abdomen or pelvis.
[2022-03-18 15:42] LABS: Band Neutrophils % 1 %; Lymphocytes # (M) 40.63 k/uL (1.0-4.8); Monocytes # (M) 3.29 k/uL (0-1.0); Neutrophils % (M) 9 %
[2022-03-18 15:45] LABS: Nucleated Red Blood Cells 0 /100 WBC (0-0); Total Cells Counted 200
[2022-03-18 16:21] VITALS: RESP 18
[2022-03-18 17:30] VITALS: BP 148/89; PULSE 84
== END 2022-03-18 17:30 | disposition home or self-care (01) ==
LOC: EC 12:51
DX: D72.829 Elevated white blood cell count, unspecified (principal); Z87.891 Personal history of nicotine dependence
CPT/HCPCS: 36415; 80053; 83690; 83735; 85025; 71260; 74177; 99284; 96374; J2060; Q9967

== ENCOUNTER → 2022-03-18 | Outpatient (CLI) | payer MEDICAID ==
[2022-03-18 11:49] LABS: HCT 41.1 % (37.2-46.3); HGB 12.6 g/dL (12.0-15.0); MCH 28.4 pg (27.0-32.0); MCHC 30.7 g/dL (32.0-37.0); MCV 92.8 fL (80.0-97.0); Mean Platelet Volume 9.9 fL (9.5-12.2); NRBC Per 100 WBC 0.1 /100 WBCS (0.0-0.0); Platelet Count 270 X 10*3/uL (140-440); RBC 4.43 X 10*6/uL (4.10-5.20)
[2022-03-18 11:50] LABS: Basophils # (M) 0 X 10*3/uL (0.00-0.10); Blast Cells # (M) 5.47 k/uL (0); Eosinophils # (M) 0 X 10*3/uL (0.04-0.35); Lymphocytes # (M) 72.26 X 10*3/uL (0.90-5.00); Monocytes # (M) 14.23 X 10*3/uL (0.20-1.00); Myelocytes % 5 % (0-0); Neutrophils # (M) 10.95 X 10*3/uL (2.00-8.90); Neutrophils % (M) 10 %; Promyelocytes # (M) 1.09 k/uL (0); Promyelocytes % 1 % (0-0)
[2022-03-18 12:41] LABS: ALT 40 U/L (8-44); AST 36 U/L (13-35); African American GFR (CKD) 75.5 (60.0-200.0); Albumin 4.2 g/dL (3.8-4.9); Albumin/Globulin Ratio 1.62 (1.60-3.17); Alkaline Phosphatase 65 U/L (41-126); Blood Urea Nitrogen 14.3 mg/dL (9.0-27.0); Calcium 9.3 mg/dL (8.7-10.3); Carbon Dioxide 25.8 mmol/L (20.0-27.5); Chloride 101 mmol/L (96-109); Chol/HDL Ratio 4.63 Ratio; Globulin 2.6 g/dL (1.6-3.3); Glucose 89 mg/dL (70-110); LDL Cholesterol,Calculated 114.2 mg/dL (0.0-131.0); Non-African American GFR(CKD) 65.2 (60.0-200.0); Potassium 4.6 mmol/L (3.5-5.5); Sodium 139 mmol/L (135-145); Total Protein 6.8 g/dL (6.2-8.2)
[2022-03-18 15:21] LABS: WBC 109.49 X 10*3/uL (4.50-10.00)
== END | disposition home or self-care (01) ==
LOC: LABWHC1 07:51
PROVIDERS: ATTEND Family Medicine
DX: Z00.00 Encounter for general adult medical examination without abnormal findings (principal); E55.9 Vitamin D deficiency, unspecified
CPT/HCPCS: 36415; 80053; 80061; 82306; 84443; 85025

== ENCOUNTER → 2023-05-03 | Outpatient (CLI) | payer OTHER ==
[2023-05-03 11:59] LABS: Chol/HDL Ratio 4.67 Ratio; LDL Cholesterol,Calculated 144.9 mg/dL (0.0-131.0)
--- NOTE | 2023-05-04 10:16 | MM ---
Reason for Exam: Screening (asymptomatic). Last mammogram was performed 7 year(s) and 10 month(s) ago. Patient History: Menarche at age 14. First Full-Term at age 20. Postmenopausal. Mother had breast cancer, age 55. Risk Values: Tamar 5 year model risk: 1.8%. NCI Lifetime model risk: 14.6%. Prior Study Comparison: 07/14/2015 Bilateral Diagnostic Mammogram, [facility]. Tissue Density: The breasts are almost entirely fatty. Findings: Analyzed By CAD. There is no suspicious group of microcalcifications or new suspicious mass in either breast. Overall Assessment: Negative, BI-RAD 1 Management: Screening Mammogram of both breasts in 1 year. . Patient should continue monthly self-breast exams. A clinical breast exam by your physician is recommended on an annual basis. This exam should not preclude additional follow-up of suspicious palpable abnormalities. Note on Tamar scores and lifetime risk: 1. A Tamar score greater than 3% is considered moderate risk. If this is the case, consider specialist referral to assess eligibility for a risk reducing agent. 2. If overall lifetime risk for the development of breast cancer is 20% or higher, the patient may qualify for future screening with alternating mammogram and breast MRI. Electronically signed and approved by: Narciso Nash M.D. Radiologis
== END | disposition home or self-care (01) ==
LOC: RADMAMWWP 07:53
PROVIDERS: ATTEND Family Medicine
DX: Z12.31 Encounter for screening mammogram for malignant neoplasm of breast (principal); Z78.0 Asymptomatic menopausal state; Z80.3 Family history of malignant neoplasm of breast
CPT/HCPCS: 36415; 77063; 77067; 80061; 83036; 84443

== ENCOUNTER 2024-01-23 11:53 | Emergency (ER) | payer OTHER ==
[2024-01-23 12:00] VITALS: RESP 18
[2024-01-23] MEDS: MORPHINE SULFATE 4 MG/ML SYRINGE IV STA ×2 (12:40→15:04)
--- NOTE | 2024-01-23 12:43 | ED ---
Abdominal Pain HPI - General Chief Complaint: Abdominal Pain Stated Complaint: ABD pain Time Seen by Provider: 01/23/24 12:05 Source: patient Mode of arrival: ambulatory Limitations: no limitations - History of Present Illness Initial Comments: This patient is a 53-year-old woman who presents to have evaluation of mid abdominal pain. 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 She had no further spread and therefore no adjuvant treatment. The patient also has history of AL L. She states that since Monday she has been having mid abdominal pain that she describes as somewhat burning and somewhat stabbing in character. She has not noted worsening or relieving factors. She had phoned her physician on Monday and had them call and Carafate because this had helped her once with this type of pain. She states that she has been taking the medication and the pain did briefly seem to improve on Monday and Monday. The pain seemed to be worsening Monday and today so she presents here to have evaluation. The pain does not change with eating or movement. She has not noted change in urination. She has had a little bit of associated nausea but no vomiting. No change in bowel movements MD Complaint: abdominal pain Onset/Timin -: days(s) Location: periumbilical Radiation: none Migration to: no migration Severity: severe Quality: sharp, burning Consistency: constant Improves With: nothing Worsens With: nothing Associated Symptoms: nausea - Related Data Home Medications Medication Instructions Recorded Confirmed Sertraline [Zoloft] 50 mg PO W/SUPPER@1800 05/07/20 04/08/22 Sulfamethox-Tmp 800-160Mg [Bactrim 1 tab PO MOWEFR 04/01/22 04/08/22 DS 800-160 mg] LORazepam [Ativan] 0.5 mg PO Q4H PRN 04/04/22 04/08/22 dexAMETHasone [Decadron] 40 mg PO DAILY 04/05/22 04/08/22 Previous Rx's Medication Instructions Recorded Acyclovir [Zovirax] 400 mg PO BID #60 tablet 03/29/22 Fluconazole [Diflucan] 100 mg PO DAILY #30 tablet 03/29/22 Ondansetron [Zofran] 4 mg PO Q4HR PRN #45 tab 03/29/22 allopurinoL [Zyloprim] 200 mg PO HS #30 tab 03/29/22 polyethylene glycoL 3350 [Miralax] 17 gm PO DAILY PRN #0 packet 03/29/22 HYDROcodone/APAP 5-325MG [[place] 1 tab PO Q4HR PRN 3 Days #18 tab 01/23/24 5-325] Allergies Allergy/AdvReac Type Severity Reaction Status Date / Time No Known Allergies Allergy Verified 01/23/24 11:56 Review of Systems ROS Statement: Those systems with pertinent positive or pertinent negative responses have been documented in the HPI. ROS Other: All systems not noted in ROS Statement are negative. Constitutional: Denies: fever, chills Respiratory: Denies: cough, dyspnea Cardiovascular: Denies: chest pain, palpitations Gastrointestinal: Reports: as per HPI, abdominal pain, nausea. Denies: vomiting, diarrhea, constipation, hematemesis, melena, hematochezia Genitourinary: Denies: dysuria, frequency, hematuria Musculoskeletal: Denies: back pain Skin: Denies: rash Neurological: Denies: headache, weakness Past Medical History Past Medical History: Cancer, GERD/Reflux Additional Past Medical History / Comment(s): Diagnosed in 05/17 with goblet cell adenocarcinoma. 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 History of Any Multi-Drug Resistant Organisms: None Reported Past Surgical History: Appendectomy, Section, Cholecystectomy, Tubal Ligation Additional Past Surgical History / Comment(s): Pt had right hemicolectomy with lymph node removal by Dr. Albert, Dr. Jose F Solis at [facility] after Dr. Tuttle did appendectomy when cancer was discovered, was recommended to [facility] by Dr. Antonio; followup CT in June indicated pt was clear of cancer; 2 c-sections. LUMBAR PUNCTURES. Past Anesthesia/Blood Transfusion Reactions: No Reported Reaction, Motion Sickness Past Psychological History: Anxiety, Depression Smoking Status: Former smoker Past Alcohol Use History: None Reported Past Drug Use History: None Reported - Past Family History Father Family Medical History: Diabetes Mellitus Additional Family Medical History / Comment(s): Pt states paternal grandmother had CLL Mother Additional Family Medical History / Comment(s): mother had 2 siblings with CLL; mother has had breast cancer 2x General Exam Limitations: no limitations General appearance: alert, in no apparent distress Head exam: Present: atraumatic, normocephalic Eye exam: Present: normal appearance. Absent: scleral icterus, conjunctival injection ENT exam: Present: normal oropharynx Neck exam: Present: normal inspection Respiratory exam: Present: normal lung sounds bilaterally. Absent: respiratory distress, wheezes, rales, rhonchi, stridor, accessory muscle use Cardiovascular Exam: Present: regular rate, normal rhythm, normal heart sounds. Absent: systolic murmur, diastolic murmur, rubs, gallop GI/Abdominal exam: Present: soft, tenderness (There is mild diffuse tenderness without rebound or guarding). Absent: distended, guarding, rebound, rigid, organomegaly, mass, pulsatile mass, hernia Extremities exam: Present: normal inspection, normal capillary refill. Absent: pedal edema, calf tenderness Back exam: Present: normal inspection. Absent: CVA tenderness (R), CVA tenderness (L) Neurological exam: Present: alert Skin exam: Present: warm, dry, intact, normal color. Absent: rash Course Vital Signs 01/23/24 11:56 Temperature 98.8 F Pulse Rate 105 H Respiratory 18 Rate Blood Pressure 154/86 O2 Sat by Pulse 100 Oximetry Medical Decision Making - Medical Decision Making The patient had CT scan of the abdomen and pelvis that I interpreted as negative for free air, obstruction or acute surgical process. There does appear to be some element of pancreatitis present - Lab Data Result diagrams: 01/23/24 12:27 01/23/24 12:27 Lab Results 01/23/24 01/23/24 01/23/24 Range/Units 12:27 12: 12:27 WBC 13.1 H (3.8-10.6) k/uL RBC 4.42 (3.80-5.40) m/uL Hgb 12.5 (11.4-16.0) gm/dL Hct 37.9 (34.0-46.0) % MCV 85.6 (80.0-100.0) fL MCH 28.3 (25.0-35.0) pg MCHC 33.1 (31.0-37.0) g/dL RDW 14.8 (11.5-15.5) % Plt Count 223 (150-450) k/uL MPV 7.6 Neutrophils % 70 % Lymphocytes % 17 % Monocytes % 10 % Eosinophils % 1 % Basophils % 0 % Neutrophils # 9.2 H (1.3-7.7) k/uL Lymphocytes # 2.2 (1.0-4.8) k/uL Monocytes # 1.3 H (0-1.0) k/uL Eosinophils # 0.1 (0-0.7) k/uL Basophils # 0.0 (0-0.2) k/uL Sodium (137-145) mmol/L Potassium (3.5-5.1) mmol/L Chloride (98-107) mmol/L Carbon Dioxide (22-30) mmol/L Anion Gap mmol/L BUN (7-17) mg/dL Creatinine (0.52-1.04) mg/dL Est GFR (CKD-EPI)AfAm (>60 ml/min/1.73 sqM) Est GFR (CKD-EPI)NonAf (>60 ml/min/1.73 sqM) Glucose (74-99) mg/dL Plasma Lactic Acid Haider (0.7-2.0) mmol/L Calcium (8.4-10.2) mg/dL Total Bilirubin (0.2-1.3) mg/dL AST (14-36) U/L ALT (4-34) U/L Alkaline Phosphatase (38-126) U/L C-Reactive Protein (<1.0) mg/dL Total Protein (6.3-8.2) g/dL Albumin (3.5-5.0) g/dL Amylase (30-110) U/L Lipase (23-300) U/L Urine Color Yellow Urine Appearance Cloudy H (Clear) Urine pH 6.5 (5.0-8.0) Ur Specific [place] 1.025 (1.001-1.035) Urine Protein 2+ H (Negative) Urine Glucose (UA) Negative (Negative) Urine Ketones Negative (Negative) Urine Blood Small H (Negative) Urine Nitrite Negative (Negative) Urine Bilirubin Negative (Negative) Urine Urobilinogen 2.0 (<2.0) mg/dL Ur Leukocyte Esterase Large H (Negative) Urine RBC 4 (0-5) /hpf Urine WBC 27 H (0-5) /hpf Ur Squamous Epith Cells 3 (0-4) /hpf Urine Bacteria Moderate H (None) /hpf Hyaline Casts 4 H (0-2) /lpf Urine Mucus Moderate H (None) /hpf Urine HCG, Qual Not Detected (Not Detectd) 01/23/24 01/23/24 Range/Units 12:27 12:27 WBC (3.8-10.6) k/uL RBC (3.80-5.40) m/uL Hgb (11.4-16.0) gm/dL Hct (34.0-46.0) % MCV (80.0-100.0) fL MCH (25.0-35.0) pg MCHC (31.0-37.0) g/dL RDW (11.5-15.5) % Plt Count (150-450) k/uL MPV Neutrophils % % Lymphocytes % % Monocytes % % Eosinophils % % Basophils % % Neutrophils # (1.3-7.7) k/uL Lymphocytes # (1.0-4.8) k/uL Monocytes # (0-1.0) k/uL Eosinophils # (0-0.7) k/uL Basophils # (0-0.2) k/uL Sodium 137 (137-145) mmol/L Potassium 4.3 (3.5-5.1) mmol/L Chloride 102 (98-107) mmol/L Carbon Dioxide 27 (22-30) mmol/L Anion Gap 8 mmol/L BUN 16 (7-17) mg/dL Creatinine 1.00 (0.52-1.04) mg/dL Est GFR (CKD-EPI)AfAm 75 (>60 ml/min/1.73 sqM) Est GFR (CKD-EPI)NonAf 65 (>60 ml/min/1.73 sqM) Glucose 120 H (74-99) mg/dL Plasma Lactic Acid Haider 1.5 (0.7-2.0) mmol/L Calcium 9.5 (8.4-10.2) mg/dL Total Bilirubin 0.8 (0.2-1.3) mg/dL AST 28 (14-36) U/L ALT 28 (4-34) U/L Alkaline Phosphatase 92 (38-126) U/L C-Reactive Protein 7.0 H (<1.0) mg/dL Total Protein 7.6 (6.3-8.2) g/dL Albumin 4.6 (3.5-5.0) g/dL Amylase 113 H (30-110) U/L Lipase 1057 H (23-300) U/L Urine Color Urine Appearance (Clear) Urine pH (5.0-8.0) Ur Specific Woden (1.001-1.035) Urine Protein (Negative) Urine Glucose (UA) (Negative) Urine Ketones (Negative) Urine Blood (Negative) Urine Nitrite (Negative) Urine Bilirubin (Negative) Urine Urobilinogen (<2.0) mg/dL Ur Leukocyte Esterase (Negative) Urine RBC (0-5) /hpf Urine WBC (0-5) /hpf Ur Squamous Epith Cells (0-4) /hpf Urine Bacteria (None) /hpf Hyaline Casts (0-2) /lpf Urine Mucus (None) /hpf Urine HCG, Qual (Not Detectd) Disposition Clinical Impression: Pancreatitis Disposition: HOME SELF-CARE Condition: Good Instructions (If sedation given, give patient instructions): Pancreatitis (ED) Prescriptions: HYDROcodone/APAP 5-325MG [[place] 5-325] 1 tab PO Q4HR PRN 3 Days #18 tab PRN Reason: Pain Is patient prescribed a controlled substance at d/c from ED?: No Referrals: Becki Gregory MD [Primary Care Provider] - 1-2 days
[2024-01-23 12:47] LABS: Basophils % (A) 0 %; Eosinophils # (A) 0.1 k/uL (0-0.7); Eosinophils % (A) 1 %; HCT 37.9 % (34.0-46.0); HGB 12.5 gm/dL (11.4-16.0); Lymphocytes # (A) 2.2 k/uL (1.0-4.8); Lymphocytes % (A) 17 %; MCH 28.3 pg (25.0-35.0); MCHC 33.1 g/dL (31.0-37.0); MCV 85.6 fL (80.0-100.0); Mean Platelet Volume 7.6; Monocytes # (A) 1.3 k/uL (0-1.0); Monocytes % (A) 10 %; Neutrophils # (A) 9.2 k/uL (1.3-7.7); Neutrophils % (A) 70 %; Platelet Count 223 k/uL (150-450); RBC 4.42 m/uL (3.80-5.40); RDW 14.8 % (11.5-15.5); WBC 13.1 k/uL (3.8-10.6)
[2024-01-23 13:06] LABS: ALT 28 U/L (4-34); AST 28 U/L (14-36); African American GFR (CKD) 75 (>60 ml/min/1.73 sqM); Albumin 4.6 g/dL (3.5-5.0); Alkaline Phosphatase 92 U/L (38-126); Amylase 113 U/L (30-110); Anion Gap 8 mmol/L; Blood Urea Nitrogen 16 mg/dL (7-17); Calcium 9.5 mg/dL (8.4-10.2); Carbon Dioxide 27 mmol/L (22-30); Chloride 102 mmol/L (98-107); Glucose 120 mg/dL (74-99); Lipase 1057 U/L (23-300); Non-African American GFR(CKD) 65 (>60 ml/min/1.73 sqM); Potassium 4.3 mmol/L (3.5-5.1); Sodium 137 mmol/L (137-145); Total Bilirubin 0.8 mg/dL (0.2-1.3); Total Protein 7.6 g/dL (6.3-8.2)
[2024-01-23 13:09] LABS: Appearance,Urine Cloudy (Clear); Bacteria,Urine Moderate /hpf; Bilirubin,Urine Negative (Negative); Blood,Urine Small (Negative); Color,Urine Yellow; Glucose,Urine (UA) Negative (Negative); Hyaline Casts,Urine 4 /lpf (0-2); Ketones,Urine Negative (Negative); Leukocyte Esterase,Urine Large (Negative); Mucus,Urine Moderate /hpf; Nitrite,Urine Negative (Negative); PH, Urine 6.5 (5.0-8.0); Protein,Urine 2+ (Negative); RBC,Urine 4 /hpf (0-5); Specific Gravity,Urine 1.025 (1.001-1.035); Squamous Epithelial Cell,Urine 3 /hpf (0-4); WBC,Urine 27 /hpf (0-5)
--- NOTE | 2024-01-23 14:03 | CT ---
EXAMINATION TYPE: CT abdomen pelvis w con CT DLP: 1795.4 mGycm, Automated exposure control for dose reduction was used. DATE OF EXAM: 01/23/2024 1:52 PM COMPARISON: CT chest abdomen and pelvis 03/18/2022 CLINICAL INDICATION:Female, 53 years old with history of abdominal pain, nonlocalized; mid abd pain, history of acute lymphoblastic leukemia TECHNIQUE: Standard CT of the abdomen and pelvis following the administration of 100 cc of Isovue 3 00 IV contrast material. Coronal and sagittal reformats were performed. FINDINGS: LOWER CHEST: Linear atelectasis within the left lower lobe. ABDOMEN LIVER: Unremarkable GALLBLADDER AND BILE DUCTS: The gallbladder is surgically absent. No biliary ductal dilatation. PANCREAS: Peripancreatic inflammatory changes involving the head neck and body of the pancreas. Infla mmatory changes extend into the anterior mesentery. No surrounding organized fluid collection. The pa ncreas enhances homogeneously. No pancreatic parenchymal calcifications. No pancreatic ductal dilatat ion. SPLEEN: Unremarkable. ADRENAL GLANDS: Unremarkable. KIDNEYS AND URETERS: No evidence of hydronephrosis or renal calculus. The kidneys enhance symmetrical ly. PELVIS BLADDER: Incompletely distended but grossly unremarkable. REPRODUCTIVE: Unremarkable. ABDOMEN & PELVIS STOMACH AND BOWEL: Stomach and duodenum are unremarkable. No focal bowel wall thickening. Postsurgica l changes the region cecum with the appendix surgically absent. No suspicious soft tissue within the surgical site. No evidence of bowel obstruction. PERITONEUM: No evidence of pneumoperitoneum or free fluid. There are 2 surgical clips identified with in the posterior cul-de-sac again. VASCULATURE: No evidence of aortic aneurysm. MUSCULOSKELETAL: No acute osseous abnormalities. Mild multilevel degenerative disc disease. LYMPH NODES: No evidence for lymphadenopathy. SOFT TISSUE/ABDOMINAL WALL: Redemonstration of left periumbilical fat-containing hernia with defect m easuring up to 4 cm in diameter. IMPRESSION: 1. Inflammatory changes surrounding the proximal pancreas suspicious for acute interstitial pancreat itis. No surrounding organized fluid collection. Correlate with lipase phase. 2. Postsurgical changes without definitive evidence of recurrence. [facility], , 01/23/2024 2:01 PM
[2024-01-23 15:34] VITALS: BP 133/85; PULSE 86; TEMP 98.4
== END 2024-01-23 15:35 | disposition home or self-care (01) ==
LOC: EC 11:53
DX: K85.90 Acute pancreatitis without necrosis or infection, unspecified (principal); Z87.891 Personal history of nicotine dependence
CPT/HCPCS: 36415; 80053; 82150; 83605; 83690; 85025; 86140; 81001; 81025; 74177; 99284; 96374; 96376; J2270; Q9967